=== PATIENT | female | born 1975 | race Two or more races ===

== ENCOUNTER 2019-03-25 11:22 | Inpatient (IN) | payer OTHER ==
[~2019-03-25] VITALS: Ht 157.5 cm; Wt 52.2 kg
[2019-04-03] MEDS ORDERED: KETO10TA2 PO (13:34)
[2019-04-03] MEDS ORDERED: ULTRACET PO (13:35)
== END 2019-04-03 14:49 | disposition home or self-care (01) | DRG 331 ==
LOC: O/R 03-31 05:51 → SURH 03-31 05:51 → SURG 03-31 11:15 → SURH 03-31 12:00 → SURG 03-31 13:30 → SURH 04-03 14:49
PROVIDERS: ADMIT Surgery
PROC: 0DTF4ZZ Resection of Right Large Intestine, Percutaneous Endoscopic Approach (ICD-10-PCS; principal; 2019-03-31 13:30)
DX: D12.2 Benign neoplasm of ascending colon (principal); K63.89 Other specified diseases of intestine